=== PATIENT | male | born 2000 | race Caucasian/White ===

== ENCOUNTER 2022-03-20 20:14 | Emergency (ER) | payer SELFPAY ==
[~2022-03-20] VITALS: Ht 178 cm; Wt 67.3 kg
--- NOTE | 2022-03-20 21:20 | ED Abdominal Pain ---
General Chief Complaint: Abdominal/GI Problems Stated Complaint: ABD PAIN - FEVER Nursing Triage Note: PT AMB TO ED BY POV WITH C/O UPPER ABD PAIN, N/V, WEAKNESS AND DECREASED APPETITE. PT REPORTS HE HAD A HERNIA REPAIR IN AUGUST AND HAS HAD ABD PAIN AND N/V SINCE, BUT IT GOT MUCH WORSE YESTERDAY. Source of Information: Patient Exam Limitations: No Limitations History of Present Illness Date Seen by Provider: Mar 20, 2022 Time Seen by Provider: 21:20 Allergies and Home Medications Allergies Coded Allergies: No Known Drug Allergies (Unverified , 03/20/22) Past Irtrgzg-Wevedw-Akszqb Hx Patient Social History Tobacco Use?: No Use of E-Cig and/or Vaping dev: No Substance use?: Yes Substance type: Marijuana Substance frequency: Daily Alcohol Use?: No Pt feels they are or have been: No Immunizations Up To Date Influenza Vaccine Up-to-Date: Yes; Up-to-Date First/Initial COVID19 Vaccinat: YES Second COVID19 Vaccination Gagandeep: YES COVID19 Vaccine P[employer]er: ArboribusDarlyn Past Medical History Surgery/Hospitalization HX: HERNIA REPAIR Physical Exam Vital Signs Vital Signs - First Documented 03/20/22 20:27 Temp 37.2 Pulse 107 Resp 18 B/P (MAP) 114/64 (81) Pulse Ox 99 O2 Delivery Room Air Capillary Refill : Less Than 3 Seconds Height/Weight/BMI Height: '" Weight: lbs. oz. kg; 21.00 BMI Method: Progress/Results/Core Measures Results/Orders Lab Results Laboratory Tests Test 03/20/22 21:20 Range/Units White Blood Count 13.6 H 4.3-11.0 10^3/uL Red Blood Count 4.67 4.30-5.52 10^6/uL Hemoglobin 15.3 13.3-17.7 g/dL Hematocrit 44 40-54 % Mean Corpuscular Volume 95 80-99 fL Mean Corpuscular Hemoglobin 33 25-34 pg Mean Corpuscular Hemoglobin Concent 35 32-36 g/dL Red Cell Distribution Width 12.6 10.0-14.5 % Platelet Count 279 130-400 10^3/uL Mean Platelet Volume 9.1 9.0-12.2 fL Immature Granulocyte % (Auto) 0 % Neutrophils (%) (Auto) 80 H 42-75 % Lymphocytes (%) (Auto) 12 12-44 % Monocytes (%) (Auto) 8 0-12 % Eosinophils (%) (Auto) 0 0-10 % Basophils (%) (Auto) 0 0-10 % Neutrophils # (Auto) 10.9 H 1.8-7.8 10^3/uL Lymphocytes # (Auto) 1.6 1.0-4.0 10^3/uL Monocytes # (Auto) 1.1 H 0.0-1.0 10^3/uL Eosinophils # (Auto) 0.0 0.0-0.3 10^3/uL Basophils # (Auto) 0.0 0.0-0.1 10^3/uL Immature Granulocyte # (Auto) 0.0 0.0-0.1 10^3/uL Sodium Level 137 135-145 MMOL/L Potassium Level 3.4 L 3.6-5.0 MMOL/L Chloride Level 102 98-107 MMOL/L Carbon Dioxide Level 21 21-32 MMOL/L Anion Gap 14 5-14 MMOL/L Blood Urea Nitrogen 11 7-18 MG/DL Creatinine 0.95 0.60-1.30 MG/DL Estimat Glomerular Filtration Rate 118 BUN/Creatinine Ratio 12 Glucose Level 99 70-105 MG/DL Calcium Level 9.9 8.5-10.1 MG/DL Corrected Calcium 9.5 8.5-10.1 MG/DL Total Bilirubin 1.0 0.1-1.0 MG/DL Aspartate Amino Transf (AST/SGOT) 20 5-34 U/L Alanine Aminotransferase (ALT/SGPT) 18 0-55 U/L Alkaline Phosphatase 63 40-136 U/L Total Protein 7.6 6.4-8.2 GM/DL Albumin 4.5 3.2-4.5 GM/DL Lipase 22 8-78 U/L My Orders Orders - GRAEME HAYNES PRODUCTION DESIGNER Cbc With Automated Diff (03/20/22 21:17) Comprehensive Metabolic Panel (03/20/22 21:17) Ct Abdomen/Pelvis W (03/20/22 21:17) Lipase (03/20/22 21:17) Ed Iv/Invasive Line Start (03/20/22 21:17) Fentanyl Inj (Sublimaze Injection) (03/20/22 21:30) Ondansetron Injection (Zofran Injectio (03/20/22 21:30) Ns Iv 1000 Ml (Sodium Chloride 0.9%) (03/20/22 21:30) Medications Given in ED Current Medications Medications Dose Ordered Sig/Bj Route Start Time Stop Time Status Last Admin Dose Admin Fentanyl Citrate 50 mcg ONCE ONCE IVP 03/20/22 21:30 03/20/22 21:31 DC 03/20/22 21:55 50 MCG Ondansetron HCl 4 mg ONCE ONCE IVP 03/20/22 21:30 03/20/22 21:31 DC 03/20/22 21:55 4 MG Vital Signs/I&O 03/20/22 20:27 Temp 37.2 Pulse 107 Resp 18 B/P (MAP) 114/64 (81) Pulse Ox 99 O2 Delivery Room Air Blood Pressure Mean: 81 Departure Impression Primary Impression: Abdominal pain Disposition: HOME, SELF-CARE Condition: Improved Departure-Patient Inst. Decision time for Depature: 22:22 Referrals: [facility] [place] Primary Care Physician ERIC CHOWDARY BRETT D DO Patient Instructions: Abdominal Pain, Adult ED, Nausea and Vomiting, Adult Add. Discharge Instructions: Plan: 1. Take Metoclopramide by mouth 30 minutes before meals, take at least six hours apart. 2. Avoid large meals and continue to eat smaller more frequent meals. 3. Establish with primary care provider of your choice. 4. Fill out financial administration officer paper work and call Dr. Black or [facility] office for surgical follow up. 5. Return to ER for any new, concerning, or worsening symptoms. All discharge instructions reviewed with patient and/or family. Voiced understanding. Scripts Metoclopramide HCl (Metoclopramide HCl) 5 Mg Tablet 5 MG PO Q6H PRN for NAUSEA-1ST LINE, #20 TAB 0 Refills Prov: GRAEME HAYNES PRODUCTION DESIGNER 03/20/22 GRAEME HAYNES PRODUCTION DESIGNER Mar 20, 2022 21:20
[2022-03-20 21:30] LABS: BASOPHILS % (AUTO) 0 % (0-10); EOSINOPHILS % (AUTO) 0 % (0-10); HEMATOCRIT 44 % (40-54); HEMOGLOBIN 15.3 g/dL (13.3-17.7); LYMPHOCYTES # (AUTO) 1.6 10^3/uL (1.0-4.0); LYMPHOCYTES % (AUTO) 12 % (12-44); MEAN CORPUSCULAR HEMOGLOBIN 33 pg (25-34); MEAN CORPUSCULAR HGB CONC 35 g/dL (32-36); MEAN CORPUSCULAR VOLUME 95 fL (80-99); MEAN PLATELET VOLUME 9.1 fL (9.0-12.2); MONOCYTES # (AUTO) 1.1 10^3/uL (0.0-1.0); MONOCYTES % (AUTO) 8 % (0-12); NEUTROPHILS # (AUTO) 10.9 10^3/uL (1.8-7.8); NEUTROPHILS % (AUTO) 80 % (42-75); PLATELET COUNT 279 10^3/uL (130-400); WHITE BLOOD COUNT 13.6 10^3/uL (4.3-11.0)
[2022-03-20] MEDS ORDERED: ONDANSETRON 4 MG/2 ML (SDV) Z0FRAN IVP ONE (21:30)
[2022-03-20] MEDS ORDERED: NS IV 1000 ML 1,000 ML IV SCH (21:30)
[2022-03-20] MEDS ORDERED: fentaNYL INJ 100 MCG/2 ML AMP IVP ONE (21:30)
--- NOTE | 2022-03-20 21:55 | Diagnostic Imaging Report ---
PROCEDURE: CT abdomen and pelvis with contrast. TECHNIQUE: Multiple contiguous axial images were obtained through the abdomen and pelvis after administration of intravenous contrast. Auto Exposure Controls were utilized during the CT exam to meet ALARA standards for radiation dose reduction. All CT scans use one or more of the following dose optimizing techniques: automated exposure control, MA and/or KvP adjustment based on patient size and exam type or iterative reconstruction. INDICATION: Abdominal pain. COMPARISON: None available. FINDINGS: The visualized lung bases are clear. The liver and spleen are unremarkable. The adrenal glands are unremarkable. The gallbladder is unremarkable. 1.6 cm region of calcifications is noted within the central mesentery just to the left of midline. The pancreas is unremarkable. Small hyperdensities are identified within the central aspect of the bilateral kidneys, felt to relate to early excretion of contrast. The bilateral kidneys are otherwise unremarkable. No aneurysmal dilatation of the abdominal aorta. The appendix is unremarkable. The urinary bladder is unremarkable. No bowel obstruction or pneumatosis. Multiple calcified lymph nodes are noted along the right iliac chain. No pathologically enlarged lymph nodes. No significant free air or free fluid. No acute osseous abnormality. IMPRESSION: A few calcified lymph nodes are present within the abdomen with prominent calcification within the central mesentery. This is nonspecific and could relate to chronic granulomatous disease or treated lymphoma. Carcinoid is an additional consideration. The appendix is unremarkable. Additional findings as above. Dictated by: Dictated on workstation # [id number]
[2022-03-20 22:11] LABS: ALBUMIN 4.5 GM/DL (3.2-4.5); CALCIUM 9.9 MG/DL (8.5-10.1); CREATININE SERUM 0.95 MG/DL (0.60-1.30); POTASSIUM 3.4 MMOL/L (3.6-5.0); TOTAL PROTEIN 7.6 GM/DL (6.4-8.2)
[2022-03-20] MEDS ORDERED: METO5TAB2 PO (22:24)
[2022-03-20 22:30] VITALS: BP 114/64
[2022-03-21] MEDS ORDERED: IOHEXOL 350 MG/ML 100 ML (OMNIPAQUE 350) VIAL IV ONE
[2022-03-21] MEDS ORDERED: NS 100 ML (IVPB) BAG IV ONE
== END 2022-03-20 22:30 | disposition home or self-care (01) ==
LOC: ER 20:16
DX: R10.10 Upper abdominal pain, unspecified (principal); Z98.890 Other specified postprocedural states
CPT/HCPCS: 36415; 74177; 80053; 83690; 85025

== ENCOUNTER → 2022-05-21 | Outpatient (CLI) | payer BC ==
[~2022-05-21] MED LIST: METO5TAB2 PO
[2022-05-21 09:09] LABS: BASOPHILS % (AUTO) 0 % (0-10); EOSINOPHILS % (AUTO) 1 % (0-10); HEMATOCRIT 45 % (40-54); HEMOGLOBIN 15.1 g/dL (13.3-17.7); LYMPHOCYTES # (AUTO) 2.2 10^3/uL (1.0-4.0); LYMPHOCYTES % (AUTO) 37 % (12-44); MEAN CORPUSCULAR HEMOGLOBIN 32 pg (25-34); MEAN CORPUSCULAR HGB CONC 34 g/dL (32-36); MEAN CORPUSCULAR VOLUME 95 fL (80-99); MEAN PLATELET VOLUME 8.4 fL (9.0-12.2); MONOCYTES # (AUTO) 0.6 10^3/uL (0.0-1.0); MONOCYTES % (AUTO) 10 % (0-12); NEUTROPHILS % (AUTO) 51 % (42-75); PLATELET COUNT 242 10^3/uL (130-400); WHITE BLOOD COUNT 5.8 10^3/uL (4.3-11.0)
[2022-05-21 09:38] LABS: ALBUMIN 4.1 GM/DL (3.2-4.5)
[2022-05-21 09:39] LABS: CALCIUM 9.5 MG/DL (8.5-10.1)
[2022-05-21 09:41] LABS: TOTAL PROTEIN 7.4 GM/DL (6.4-8.2)
[2022-05-21 09:42] LABS: BILIRUBIN,TOTAL 0.5 MG/DL (0.1-1.0)
[2022-05-21 09:44] LABS: CREATININE SERUM 0.96 MG/DL (0.60-1.30)
== END ==
LOC: LAB 08:36
PROVIDERS: ATTEND Nurse Practitioner
DX: R93.5 Abnormal findings on diagnostic imaging of other abdominal regions, including retroperitoneum (principal); R13.10 Dysphagia, unspecified
CPT/HCPCS: 36415; 80053; 83497; 85025

== ENCOUNTER → 2022-07-10 | Outpatient (CLI) | payer BC | LOC: LABNPT 16:10 | PROVIDERS: ATTEND Nurse Practitioner | DX: Z01.89 Encounter for other specified special examinations (principal) | CPT/HCPCS: 83497 ==

== ENCOUNTER → 2022-07-15 | Outpatient (CLI) | payer BC ==
[~2022-07-15] MED LIST changes: +BARIUM for suspension 96% w/w (Vanilla Silq Medium Density) PO ONE; +BARIUM for suspension 98% w/w (Vanilla Silq High Density) PO ONE
--- NOTE | 2022-07-21 09:46 | Diagnostic Imaging Report ---
Esophagram. Indication: Difficulty swallowing There are no prior esophagrams available for comparison. The CT abdomen/pelvis exam performed on 03/20/2022 failed to show any sign of an acute abnormality. A double contrast study was performed. The patient swallowed the contrast material without difficulty. There was no delay or obstruction in passage of the contrast through the esophagus. There is no aspiration or penetration identified. There is no mass, stricture or ulceration noted. There is no evidence for a hiatal hernia nor could gastroesophageal reflux be demonstrated. The stomach, duodenum and proximal small bowel were visualized. There is no acute abnormality identified. Impression: 1. The esophagus shows good distensibility and motility. There is no mass or stricture or ulceration identified and there is no sign of a hiatal hernia or gastroesophageal reflux. 2. The stomach, duodenum and proximal small bowel are generally unremarkable. Dictated by: Dictated on workstation # [id number]
== END ==
LOC: RAD 11:15
PROVIDERS: ATTEND Nurse Practitioner
DX: R13.10 Dysphagia, unspecified (principal)
CPT/HCPCS: 74220

== ENCOUNTER 2022-07-26 09:29 | Outpatient (CLI) | payer BC ==
[~2022-07-26] VITALS: Ht 170.2 cm; Wt 65.2 kg
[~2022-07-26 09:29] MED LIST changes: -BARIUM for suspension 96% w/w (Vanilla Silq Medium Density) PO ONE; -BARIUM for suspension 98% w/w (Vanilla Silq High Density) PO ONE
== END 2022-07-26 11:16 | disposition home or self-care (01) ==
LOC: PREOP 09:29
PROVIDERS: ATTEND Surgery
DX: Z01.818 Encounter for other preprocedural examination (principal)

== ENCOUNTER 2022-09-18 05:59 | Outpatient (CLI) | payer BC ==
[~2022-09-18] VITALS: Ht 170.2 cm; Wt 65.0 kg
== END 2022-09-18 17:26 | disposition home or self-care (01) ==
LOC: PREOP 05:59
PROVIDERS: ATTEND Surgery
DX: Z01.818 Encounter for other preprocedural examination (principal)

== ENCOUNTER 2022-09-26 07:45 | Day surgery (SDC) | payer BC ==
[~2022-09-26] VITALS: Ht 170 cm; Wt 65.0 kg
[2022-09-26] MEDS ORDERED: LACTATED RINGERS 1,000 ML IV STA (07:51)
[2022-09-26] MEDS ORDERED: HURRICAINE EXT TUBE (BENZOCAINE) XX PRN (08:00)
[2022-09-26 08:08] VITALS: BP 126/70
[2022-09-26] MEDS ORDERED: PROPOFOL INJECTION 50 ML IV ONE (09:13)
[2022-09-26 09:30] VITALS: BP 97/55
--- NOTE | 2022-09-26 09:32 | Anesthesia-General Post-Op ---
MAC Patient Condition Mental Status/LOC: Same as Preop Cardiovascular: Satisfactory Nausea/Vomiting: Absent Respiratory: Satisfactory Pain: Controlled Complications: Absent Post Op Complications Complications None Follow Up Care/Instructions Patient Instructions None needed. Anesthesiology Discharge Order Discharge Order Patient is doing well, no complaints, stable vital signs, no apparent adverse anesthesia problems. No complications reported per nursing. YOEL BAPTISTE CRNA Sep 26, 2022 09:32
[2022-09-26 09:35] VITALS: BP 90/52
[2022-09-26 09:40] VITALS: BP 92/54
--- NOTE | 2022-09-26 09:41 | Progress Note-Post Operative ---
Post-Operative Progess Note Surgeon (s)/Automotive Sales Representative (s) Surgeon WILMA SMITH DO Automotive Sales Representative: na Pre-Operative Diagnosis dysphagia Post-Operative Diagnosis reflux espophagitis Procedure & Operative Findings Date of Procedure 09/26/22 Procedure Performed/Findings egd c biopsy Anesthesia Type per high school librarian Estimated Blood Loss Estimated blood loss (mL): none Specimens/Packing Specimens Removed antrum, ge WILMA SMITH DO Sep 26, 2022 09:41
[2022-09-26 09:45] VITALS: BP 92/54
[2022-09-26] MEDS ORDERED: PANT40TA2 PO (09:59)
--- NOTE | 2022-09-26 10:00 | Discharge Inst-Simple/Standard ---
Discharge Inst-Standard Discharge Medications New, Converted or Re-Newed RX: Transmitted to Pharmacy Patient Instructions/Follow Up Plan of Care/Instructions/FU: 2 weeks Wayne Activity as Tolerated: Yes Discharge Diet: Regular Diet WILMA SMITH DO Sep 26, 2022 09:59
[2022-09-26 10:07] VITALS: BP 92/54
--- NOTE | 2022-09-26 12:38 | OPERATIVE REPORT ---
DATE OF SERVICE: 09/26/2022 PREOPERATIVE DIAGNOSIS: Dysphagia. POSTOPERATIVE DIAGNOSES: Reflux esophagitis. PROCEDURES: EGD with biopsy. SURGEON: Wilma Black DO ANESTHESIA: Per VISUAL DESIGN LEAD. ESTIMATED BLOOD LOSS: None. COMPLICATIONS: None. INDICATIONS: The patient is a 22-year-old male with dysphagia symptoms. He had previous wrap for hiatal hernia in [place]. He understands risks and benefits of procedure and wished to proceed. Consent was signed in chart. DESCRIPTION OF PROCEDURE: The patient was taken to endoscopy suite, placed in left lateral recumbent position. Timeout was performed. Scope was inserted in the mouth, down the esophagus, stomach, into the duodenum without difficulty. No polyps, masses or ulcerations. Scope was slowly retracted back into stomach where it was further insufflated. No polyps, masses or ulcerations. Biopsy of the antrum was obtained. Scope was retroflexed noting no evidence of previous wrap, no other pathology. Scope was returned to its normal position, slowly withdrawn until distal esophagus, change of reflux esophagitis present. Biopsy of the GE junction was obtained. Scope was then slowly retracted back, noting no other pathology. The patient tolerated the procedure well without any complications, taken to recovery room in stable condition. RECOMMENDATIONS: The patient will be started on Protonix 40 mg daily. We will return to clinic in 2 weeks to have followup, stable symptoms and pathology is doing. Further recommendation is pending. Job ID: [id number] DocumentID: [id number] Dictated Date: 09/26/2022 09:43:31 Cooler Worker Date: 09/26/2022 12:36:00 Dictated By: WILMA BLACK DO
== END 2022-09-26 10:15 | disposition home or self-care (01) ==
LOC: ENDO 07:45
PROVIDERS: ATTEND Surgery
DX: K21.00 Gastro-esophageal reflux disease with esophagitis, without bleeding (principal); K29.70 Gastritis, unspecified, without bleeding